=== PATIENT | female | born 1995 | race Caucasian/White ===

== ENCOUNTER 2017-05-12 00:19 | Emergency (ER) | payer MEDICAID ==
[~2017-05-12] VITALS: Ht 180.3 cm; Wt 98.4 kg
[~2017-05-12 00:19] MED LIST: BUPR100T6 PO; CLON1TAB PO; DEXT10TA7 PO; FLUO20CA19 PO
[2017-05-12 00:24] VITALS: BP 157/91
== END 2017-05-12 01:23 | disposition home or self-care (01) ==
LOC: ED 01:00
DX: K04.7 Periapical abscess without sinus (principal)
CPT/HCPCS: 99283

== ENCOUNTER 2017-08-28 05:36 | Emergency (ER) | payer MEDICAID ==
[~2017-08-28] VITALS: Ht 182.9 cm; Wt 92.0 kg
[2017-08-28] MEDS ORDERED: LORazepam 2 MG/ML, 1ML ONE (06:24)
[2017-08-28] MEDS ORDERED: SODIUM CHLORIDE 0.9% 1,000ML IVBOLUS ONE (06:30)
[2017-08-28] MEDS ORDERED: SODIUM CHLORIDE FLUSH 10ML SYR IVF ONE (06:30)
[2017-08-28] MEDS ORDERED: LORazepam 2 MG/ML, 1ML IVPush ONE (06:30)
[2017-08-28 08:09] VITALS: BP 136/80
== END 2017-08-28 08:11 | disposition home or self-care (01) ==
LOC: ED 07:17
DX: F41.1 Generalized anxiety disorder (principal); F12.10 Cannabis abuse, uncomplicated
CPT/HCPCS: 36415; 80047; 84702; 93005; 96374; 99285; J2060; J7030

== ENCOUNTER 2017-09-08 04:20 | Emergency (ER) | payer MEDICAID ==
[~2017-09-08] VITALS: Ht 180.3 cm; Wt 91.0 kg
[2017-09-08] MEDS ORDERED: LORazepam 2 MG/ML, 1ML IVPush ONE (05:00)
[2017-09-08] MEDS ORDERED: LORazepam 2 MG/ML, 1ML ONE (05:09)
[2017-09-08 05:35] LABS: BLOOD UREA NITROGEN 21 mg/dL (7-18); HEMATOCRIT 36.7 % (34.6-47.8); HEMOGLOBIN 12.4 g/dL (11.7-16.4); WHITE BLOOD COUNT 6.5 x10^3/uL (3.4-10)
[2017-09-08 07:00] LABS: IS PT STATUS REG ER OR PRE ER? YES
[2017-09-08 07:49] VITALS: BP 131/77
== END 2017-09-08 08:58 | disposition home or self-care (01) ==
LOC: ED 05:27
DX: F41.1 Generalized anxiety disorder (principal); F32.9 Major depressive disorder, single episode, unspecified; G62.9 Polyneuropathy, unspecified
CPT/HCPCS: 36415; 71010; 80048; 82040; 84439; 84443; 84484; 84703; 85025; 85379; 93005; 96374; 99285; J2060

== ENCOUNTER 2018-08-27 11:39 | Emergency (ER) | payer MEDICAID ==
[~2018-08-27] VITALS: Ht 182.9 cm; Wt 79.8 kg
[2018-08-27 11:49] VITALS: BP 149/98
[2018-08-27] MEDS ORDERED: HYDROcodone/APAP 5/325 TABLET ONE (12:13)
[2018-08-27] MEDS ORDERED: HYDROcodone/APAP 5/325 TABLET PO ONE (12:30)
== END 2018-08-27 12:34 | disposition home or self-care (01) ==
LOC: ED 12:30
DX: K04.7 Periapical abscess without sinus (principal); G62.9 Polyneuropathy, unspecified
CPT/HCPCS: 99283